=== PATIENT | female | born 1945 | race Caucasian/White ===

== ENCOUNTER 2016-12-24 18:03 | Emergency (ER) | payer MEDICARE ==
[2016-12-24 18:25] VITALS: TEMP 97.1; O2SAT 97
--- NOTE | 2016-12-24 18:37 | ED.PDOC ---
History of Present Illness - General Chief Complaint: Trauma Stated Complaint: left rib pain Time Seen by Provider: 12/24/16 18:33 Source: patient, RN notes reviewed, Vital Signs reviewed Exam Limitations: no limitations - History of Present Illness Initial Comments: Kita Dewitt 71 y/o female stated that she slipped and fell at home 12/22/2016 as she was walking from her bedroom to the kitchen to get water at about 0300h.She stated nightlights bulbs was off and did not turn on her lights.She denies head or neck injuries but bit her tongue and fell on her left side causing her ribs to hurt since incident making her unable to sleep because of the pain no medical attention was made after the incident Timing/Duration: other - 3 days ago Severity: moderate Improving Factors: rest Worsening Factors: movement Associated Symptoms: denies symptoms Allergies/Adverse Reactions: Allergies NO KNOWN ALLERGY Allergy (Verified 12/24/16 18:24) Home Medications: Ambulatory Orders Acetamin W/Cod #3 Tab [Tylenol w/CODEINE #3] 1 ea PO Q6HR PRN #20 tab 12/24/16 Review of Systems - Review of Systems Constitutional: States: no symptoms reported EENTM: States: no symptoms reported Respiratory: States: see HPI Cardiology: States: no symptoms reported Gastrointestinal/Abdominal: States: no symptoms reported Genitourinary: States: no symptoms reported Musculoskeletal: States: no symptoms reported Skin: States: no symptoms reported Neurological: States: no symptoms reported Endocrine: States: no symptoms reported Hematologic/Lymphatic: States: no symptoms reported Past Medical History (General) - Patient Medical History Hx Cardiac Disorders: Yes - irregular heart rate Hx Hypertension: Yes Hx Diabetes: Yes Hx Cancer: Yes - breast Hx Other PMH: Yes - glaucoma Surgical History: other - mastectomy,, hernia repair - Social History Hx Tobacco Use: No Hx Alcohol Use: No Hx Substance Use: No Hx Substance Use Treatment: No Hx Depression: No - Activities of Daily Living Patient Lives Alone: No - Hospice Agency (if applicable):: None Grooming Ability: Independent Eating (Feeding) Ability: Independent Toileting Ability: Independent - Female History Patient is a Female of Child Bearing Age (10 -59 yrs old): No Patient : No Family Medical History - Family History Mother Family History: No Known Hx Family Cancer: Yes - lung-mom;throat-dad Physical Exam - Physical Exam General Appearance: Alert, No apparent distress Eye Exam: bilateral normal Ears, Nose, Throat: hearing grossly normal, normal ENT inspection, normal pharynx Neck: non-tender, full range of motion, supple, normal inspection Respiratory: lungs clear, normal breath sounds, no respiratory distress, other - tenderness left lower ribs mid axillary line Cardiovascular/Chest: normal peripheral pulses, regular rate, rhythm, no edema, no murmur Peripheral Pulses: radial,right: 2+, radial,left: 2+ Gastrointestinal/Abdominal: normal bowel sounds, non tender, soft Back Exam: normal inspection, no CVA tenderness, no vertebral tenderness Extremity: normal range of motion, non-tender, normal inspection, no calf tenderness Neurologic: no motor/sensory deficits, alert, normal mood/affect, oriented x 3 Skin Exam: normal color, warm/dry, other - ecchymosis right knee Lymphatic: no adenopathy Progress - EKG/XRAY/CT XRAY: chest - per radiologist no acute abnormalities noted Departure - Departure Clinical Impression: Contusion of chest wall with intact skin Fall at home Qualifiers: Encounter type: initial encounter Qualified Code(s): W19.XXXA - Unspecified fall, initial encounter Time of Disposition: 19:08 Disposition: Discharge to Home or Self Care Condition: Good Departure Forms: ED Discharge - Pt. Copy, Patient Portal Self Enrollment Instructions: DI for Rib Contusion Prescriptions: Acetamin W/Cod #3 Tab [Tylenol w/CODEINE #3] 1 ea PO Q6HR PRN #20 tab PRN Reason: Pain Home Medications: Ambulatory Orders Acetamin W/Cod #3 Tab [Tylenol w/CODEINE #3] 1 ea PO Q6HR PRN #20 tab 12/24/16
--- NOTE | 2016-12-24 18:52 | RAD ---
EXAM: Ribs,Left 3 Views (accession [id number]), Chest,1 View (accession [id number]) CLINICAL INDICATION: 71-year-old female status post fall. TECHNIQUE: Single view, AP portable chest was obtained. Three views of the LEFT ribs were obtained in multiple projection. COMPARISON: None. FINDINGS: Chest: Unremarkable cardiac and mediastinal silhouette. Heart size is normal. Tortuous ectatic thoracic aorta. Lungs are clear without focal opacity, pneumothorax or pleural effusions. Ribs: The visualized bones reveal diffuse demineralization and degenerative change. S-shaped thoracolumbar curvature. The lower ribs are not well visualized. IMPRESSION: 1. No acute cardiopulmonary abnormalities. 2. No discrete acute osseous findings are noted. If there remains clinical concern for rib pathology, CT chest may be considered. Electronically signed by: Vasrha Diez MD 12/24/2016 6:51 PM CDT
--- NOTE | 2016-12-24 18:52 | RAD ---
EXAM: Ribs,Left 3 Views (accession [id number]), Chest,1 View (accession [id number]) CLINICAL INDICATION: 71-year-old female status post fall. TECHNIQUE: Single view, AP portable chest was obtained. Three views of the LEFT ribs were obtained in multiple projection. COMPARISON: None. FINDINGS: Chest: Unremarkable cardiac and mediastinal silhouette. Heart size is normal. Tortuous ectatic thoracic aorta. Lungs are clear without focal opacity, pneumothorax or pleural effusions. Ribs: The visualized bones reveal diffuse demineralization and degenerative change. S-shaped thoracolumbar curvature. The lower ribs are not well visualized. IMPRESSION: 1. No acute cardiopulmonary abnormalities. 2. No discrete acute osseous findings are noted. If there remains clinical concern for rib pathology, CT chest may be considered. Electronically signed by: Varsha Diez MD 12/24/2016 6:51 PM CDT
[2016-12-24] MEDS ORDERED: HYDROCOD/APAP 7.5/325 (ER DISP) #3 TAB PO ONE (19:08)
[2016-12-24 19:32] VITALS: BP 119/77
== END 2016-12-24 19:25 | disposition home or self-care (01) ==
LOC: ER 18:03
DX: S20.219A Contusion of unspecified front wall of thorax, initial encounter (principal); I10 Essential (primary) hypertension; I49.9 Cardiac arrhythmia, unspecified; Z85.3 Personal history of malignant neoplasm of breast; Z90.10 Acquired absence of unspecified breast and nipple; W19.XXXA Unspecified fall, initial encounter; Y92.009 Unspecified place in unspecified non-institutional (private) residence as the place of occurrence of the external cause

== ENCOUNTER 2019-08-09 14:52 | Emergency (ER) | payer MEDICARE ==
--- NOTE | 2019-08-09 15:56 | ED.PDOC ---
History of Present Illness - General Chief Complaint: Respiratory Problem Time Seen by Provider: 08/09/19 15:01 Source: patient, RN notes reviewed, Vital Signs reviewed - History of Present Illness Initial Comments: Patient presents for evaluation of SOB over the past few days-1 week that has been intermittent. She did notice these symptoms starting and getting worse after [place] with recent dietary changes. She states that her symptoms worsen with exertion and she does endorse orthopnea. She denies any chest pain, cough, congestion, abdominal pain or leg swelling. She has no recent hospitalizations. She denies recent travel, recent surgeries, hx of DVT, and hormone replacement. She has no sinus congestion or PND. Timing/Duration: days Activities at Onset: activity Improving Factors: rest Worsening Factors: movement Allergies/Adverse Reactions: Allergies NO KNOWN ALLERGY Allergy (Verified 12/24/16 18:24) Home Medications: Ambulatory Orders Calcium Carbonate-Vitamin D [Calcium + D3 600-200 mg-Unit] 1 tab PO BEDTIME 11/16/18 Carvedilol 25 mg PO BID 11/16/18 Clonidine HCl 0.1 mg PO BEDTIME 11/16/18 Furosemide [Lasix] 20 mg PO DAILY 11/16/18 Glipizide [Glipizide Xl] 5 mg PO DAILY 11/16/18 Lisinopril & Hydrochlorothiazi [Lisinopril/Hctz 20-12.5 mg] 1 tab PO DAILY 11/16/18 Magnesium 400 mg PO DAILY 11/16/18 Metformin HCl [Metformin Hydrochloride] 1,000 mg PO BID 11/16/18 Potassium Chloride [Potassium Chloride ER] 10 meq PO DAILY 11/16/18 Simvastatin 20 mg PO BEDTIME 11/16/18 Review of Systems - Review of Systems Constitutional: Denies: chills, fever EENTM: Denies: nose congestion Respiratory: States: orthopnea, short of breath Cardiology: Denies: chest pain, edema, palpitations Gastrointestinal/Abdominal: Denies: abdominal pain Genitourinary: Denies: frequency Skin: Denies: rash Neurological: Denies: headache Hematologic/Lymphatic: Denies: blood clots Past Medical History (General) - Patient Medical History Hx Cardiac Disorders: Yes - irregular heart rate Hx Hypertension: Yes Hx Diabetes: Yes Hx Cancer: Yes - breast - Vaccination History Hx Influenza Vaccination: Yes Hx Pneumococcal Vaccination: Yes - Social History Hx Tobacco Use: No Hx Alcohol Use: No Hx Substance Use: No Hx Substance Use Treatment: No Hx Depression: No - Female History Patient : No Family Medical History - Family History Mother Family History: No Known Hx Family Cancer: Yes - lung-mom;throat-dad Physical Exam - Physical Exam General Appearance: Alert, Comfortable, No apparent distress, Well Developed, Well Groomed, Well Hydrated, Well Nourished Neck: non-tender, full range of motion, supple Respiratory: chest non-tender, lungs clear, normal breath sounds, no respiratory distress, no accessory muscle use Cardiovascular/Chest: normal peripheral pulses, regular rate, rhythm, no edema, no gallop Peripheral Pulses: radial,right: 2+, radial,left: 2+, dorsalis pedis,right: 2+, dorsalis pedis,left: 2+, posterior tibialis,right: 2+, posterior tibialis,left: 2+ Gastrointestinal/Abdominal: normal bowel sounds, non tender, soft Rectal Exam: deferred Extremity: no pedal edema, no calf tenderness Neurologic: alert, normal mood/affect, oriented x 3 Progress - Progress Progress: DDx: Pneumonia, PE, Viral URI, ACS, CHF, Arrhythmia Patient presents for evaluation of exertional dyspnea and orthopnea. She was found to have no ischemic changes on EKG. Troponin was found to be WNL making ACS unlikely. CXR was not significant for pneumonia or signs of pneumothorax. There is no pulmonary edema or pleural effusion. CBC was significant for chronic anemia and leukopenia, which patient states is not new. She had mild hyperkalemia on CMP which will improve with lasix utilization. BNP was found to be elevated suggestive of acute CHF. I discussed admission with the patient, however she declined. Patient is non-toxic and on room air. Plan will be for discharge home with increase in her daily lasix. She will follow-up with PCP for re-evaluation next week. 08/09/19 16:30 Discussed labs with patient and CXR. Patient declines admission. Discussed plan for diuresis with re-evaluation by PCP next week. Will plan for discharge home. - Results/Orders Results/Orders: CXR: NAD - EKG/XRAY/CT EKG: Sinus, nonspecific ST T wave Chg Comments: NSR with LBBB. Non-specific ST changes unchanged from previous outpt EKG Departure - Departure Clinical Impression: Left bundle branch block (LBBB) Acute exacerbation of CHF (congestive heart failure) Qualifiers: Heart failure type: unspecified Qualified Code(s): I50.9 - Heart failure, unspecified Leukopenia Qualifiers: Neutropenia type: unspecified Disposition: Discharge to Home or Self Care Condition: Good Departure Forms: ED Discharge - Pt. Copy, Patient Portal Self Enrollment Instructions: Heart Failure, Adult (DC) Home Medications: Ambulatory Orders Calcium Carbonate-Vitamin D [Calcium + D3 600-200 mg-Unit] 1 tab PO BEDTIME 11/16/18 Carvedilol 25 mg PO BID 11/16/18 Clonidine HCl 0.1 mg PO BEDTIME 11/16/18 Furosemide [Lasix] 20 mg PO DAILY 11/16/18 Glipizide [Glipizide Xl] 5 mg PO DAILY 11/16/18 Lisinopril & Hydrochlorothiazi [Lisinopril/Hctz 20-12.5 mg] 1 tab PO DAILY 11/16/18 Magnesium 400 mg PO DAILY 11/16/18 Metformin HCl [Metformin Hydrochloride] 1,000 mg PO BID 11/16/18 Potassium Chloride [Potassium Chloride ER] 10 meq PO DAILY 11/16/18 Simvastatin 20 mg PO BEDTIME 11/16/18 Comments: Live Manriquez D.O. [facility] #[id number]
--- NOTE | 2019-08-09 16:35 | RAD ---
EXAM DESCRIPTION: Chest,2 Views CLINICAL HISTORY: 74 years Female, SOB COMPARISON: November 16, 2018. TECHNIQUE: PA and lateral radiographs of the chest were obtained. FINDINGS: The trachea appears midline. The cardiomediastinal silhouette is enlarged. The pulmonary vasculature appears unremarkable. No acute consolidation or pleural effusion. Diffuse osteopenia of the visualized thoracic spine with probable compression deformity of the mid thoracic spine. IMPRESSION: 1. Stable cardiomegaly without evidence of failure or vascular congestion. 2. No acute consolidation or pleural effusion. 3. Diffuse osteopenia of the thoracic spine with probable age indeterminate compression deformity of the mid thoracic spine. Correlate with history of back pain. Electronically signed by: Arun Kirk MD 08/09/2019 4:33 PM [employer]GER
[2019-08-09 16:58] VITALS: BP 139/75; TEMP 97.4; O2SAT 95
== END 2019-08-09 16:52 | disposition home or self-care (01) ==
LOC: ER 14:52
DX: I50.9 Heart failure, unspecified (principal); I44.7 Left bundle-branch block, unspecified; D72.819 Decreased white blood cell count, unspecified; R06.02 Shortness of breath; I10 Essential (primary) hypertension; E11.9 Type 2 diabetes mellitus without complications; Z85.3 Personal history of malignant neoplasm of breast; Z79.899 Other long term (current) drug therapy; Z79.84 Long term (current) use of oral hypoglycemic drugs

== ENCOUNTER 2019-08-15 11:45 | Emergency (ER) | payer MEDICARE ==
--- NOTE | 2019-08-15 12:19 | ED.PDOC ---
History of Present Illness - General Time Seen by Provider: 08/15/19 11:54 - History of Present Illness Initial Comments: Patient presents for evaluation of worsneing shortness of breath and fatigue over the past few days. She does endorse low grade fevers. She denies any nausea, vomiting, constipation or diarrhea. She does endorse decreased urine output. She has been taking her lasix daily. She denies any chest pain. She has no sick contacts. She denies any other complaints. Allergies/Adverse Reactions: Allergies NO KNOWN ALLERGY Allergy (Verified 08/15/19 12:25) Home Medications: Ambulatory Orders Calcium Carbonate-Vitamin D [Calcium + D3 600-200 mg-Unit] 1 tab PO BEDTIME 11/16/18 Furosemide [Lasix] 20 mg PO DAILY 11/16/18 Glipizide [Glipizide Xl] 5 mg PO DAILY 11/16/18 Lisinopril & Hydrochlorothiazi [Lisinopril/Hctz 20-12.5 mg] 1 tab PO DAILY 11/16/18 Magnesium 400 mg PO DAILY 11/16/18 Potassium Chloride [Potassium Chloride ER] 10 meq PO DAILY 11/16/18 RX: Carvedilol 25 mg PO BID 11/16/18 RX: Clonidine HCl 0.1 mg PO BEDTIME 11/16/18 RX: Metformin HCl [Metformin Hydrochloride] 1,000 mg PO BID 11/16/18 RX: Simvastatin 20 mg PO BEDTIME 11/16/18 Cephalexin Monohydrate [Keflex] 500 mg PO QID 7 Days #28 cap 08/15/19 Oseltamivir Capsule [Tamiflu] 75 mg PO BID 5 Days #10 capsule 08/15/19 Review of Systems - Review of Systems Constitutional: States: fever. Denies: chills EENTM: States: nose congestion Respiratory: States: cough, short of breath Cardiology: Denies: chest pain Gastrointestinal/Abdominal: Denies: abdominal pain, diarrhea, nausea Genitourinary: States: other - decreased Musculoskeletal: Denies: back pain Skin: Denies: rash Neurological: Denies: headache Past Medical History (General) - Patient Medical History Hx Cardiac Disorders: Yes - irregular heart rate Hx Hypertension: Yes Hx Diabetes: Yes Hx Cancer: Yes - breast - Vaccination History Hx Influenza Vaccination: Yes Hx Pneumococcal Vaccination: Yes - Social History Hx Tobacco Use: No Hx Alcohol Use: No Hx Substance Use: No Hx Substance Use Treatment: No Hx Depression: No - Female History Patient : No Family Medical History - Family History Mother Family History: No Known Hx Family Cancer: Yes - lung-mom;throat-dad Physical Exam - Physical Exam General Appearance: Alert, Other - Appears uncomfortable. Non-toxic. Neck: full range of motion, supple, normal inspection Respiratory: normal breath sounds, no respiratory distress, no accessory muscle use Cardiovascular/Chest: normal peripheral pulses, regular rate, rhythm, no edema, no gallop Gastrointestinal/Abdominal: non tender, soft, no organomegaly Extremity: non-tender, normal inspection, no pedal edema Neurologic: alert, normal mood/affect, oriented x 3 Progress - Progress Progress: Patient presents for evaluation of SOB and fatigue. EKG was not suggestive of ischemic changes. CXR was not significant for pulmonary edema or pneumonia. There was no signs of anemia or leukocytosis. Troponin was WNL. BNP was elevated, not signifcant from last visit. There was slight elevated in creatinine. Potassium was WNL. Influenza screen was found to be positive. UA was also concerning for UTI. Symptoms are concerning for UTI, influenza and CHF exacerbation. Discussed admission recommendations, however patient declined. I discussed that she would benefit from IV lasix, however patient declined. Patient will be discharged with keflex and tamiflu. Patient will follow-up with PCP for re-evaluation. - Results/Orders Results/Orders: CXR: NAD 08/15/19 12:15 EKG STAT 08/15/19 12:35 Urine Culture Stat Laboratory Results WBC 2.5 K/mm3 (4.8-10.8) L 08/15/19 12:20 RBC 3.58 M/mm3 (4.20-5.40) L 08/15/19 12:20 Hgb 11.0 gm/dL (12.0-16.0) L 08/15/19 12:20 Hct 34.1 % (36.0-47.0) L 08/15/19 12:20 MCV 95.1 fl (81.0-99.0) 08/15/19 12:20 MCH 30.7 pg (27.0-31.0) 08/15/19 12:20 MCHC 32.2 g/dL (33.0-37.0) L 08/15/19 12:20 RDW 15.0 % (11.5-14.5) H 08/15/19 12:20 Plt Count 126 K/mm3 (130-400) L 08/15/19 12:20 MPV 7.3 fl (7.40-10.4) L 08/15/19 12:20 Absolute Neuts (auto) Not Reportable 08/15/19 12:20 Absolute Lymphs (auto) Not Reportable 08/15/19 12:20 Absolute Monos (auto) Not Reportable 08/15/19 12:20 Absolute Eos (auto) Not Reportable 08/15/19 12:20 Neutrophils % Not Reportable 08/15/19 12:20 Neutrophils % (Manual) 57.0 % (42.0-78.0) 08/15/19 12:20 Lymphocytes % Not Reportable 08/15/19 12:20 Lymphocytes % (Manual) 39.0 % 08/15/19 12:20 Monocytes % Not Reportable 08/15/19 12:20 Monocytes % (Manual) 3.0 % 08/15/19 12:20 Eosinophils % Not Reportable 08/15/19 12:20 Basophils % Not Reportable 08/15/19 12:20 Basophils 1.0 % 08/15/19 12:20 Hypochromia 1+ 08/15/19 12:20 Platelet Estimate Decreased (NORMAL) 08/15/19 12:20 Sodium 135 mmol/L (135-145) 08/15/19 12:20 Potassium 4.5 mmol/L (3.6-5.0) 08/15/19 12:20 Chloride 98 mmol/L (101-111) L 08/15/19 12:20 Carbon Dioxide 25 mmol/L (21-31) 08/15/19 12:20 Anion Gap 16.5 (12-18) 08/15/19 12:20 BUN 56 mg/dL (7-18) H 08/15/19 12:20 Creatinine 1.68 mg/dL (0.6-1.3) H 08/15/19 12:20 BUN/Creatinine Ratio 33.3 (10-20) H 08/15/19 12:20 Random Glucose 181 mg/dL (70-105) H 08/15/19 12:20 Serum Osmolality 290.2 mOsm/L (275-295) 08/15/19 12:20 Calcium 9.0 mg/dL (8.4-10.2) 08/15/19 12:20 Total Bilirubin 0.6 mg/dL (0.2-1.0) 08/15/19 12:20 AST 18 IU/L (10-42) 08/15/19 12:20 ALT 10 IU/L (10-60) 08/15/19 12:20 Alkaline Phosphatase 48 IU/L (42-121) 08/15/19 12:20 Troponin I 0.03 ng/mL (0.01-0.05) 08/15/19 12:20 B-Natriuretic Peptide 1500.0 pg/ml (0-100) H* 08/15/19 12:20 Serum Total Protein 6.8 gm/dL (6.4-8.2) 08/15/19 12:20 Albumin 3.4 g/dl (3.2-5.5) 08/15/19 12:20 Globulin 3.4 gm/dL (2.3-3.5) 08/15/19 12:20 Albumin/Globulin Ratio 1.0 (1.1-1.9) L 08/15/19 12:20 Urine Color Yellow (Yellow) 08/15/19 12:35 Urine Appearance Clear (Clear) 08/15/19 12:35 Urine pH 5.0 (4.5-7.8) 08/15/19 12:35 Ur Specific [place] 1.010 (1.005-1.030) 08/15/19 12:35 Urine Protein Negative mg/dL 08/15/19 12:35 Urine Glucose (UA) Negative mg/dL (Negative) 08/15/19 12:35 Urine Ketones Negative mg/dL (NEGATIVE) 08/15/19 12:35 Urine Blood Negative (Negative) 08/15/19 12:35 Urine Nitrite Negative 08/15/19 12:35 Urine Bilirubin Negative (NEGATIVE) 08/15/19 12:35 Urine Urobilinogen 0.2 mg/dL (0.2-1.0) 08/15/19 12:35 Ur Leukocyte Esterase Moderate (Negative) H 08/15/19 12:35 Urine RBC 1-3 /hpf 08/15/19 12:35 Urine WBC 10-20 /hpf H 08/15/19 12:35 Ur Epithelial Cells 3-5 /hpf 08/15/19 12:35 Urine Bacteria 1+ 08/15/19 12:35 - EKG/XRAY/CT Comments: NSR rate of [address] changes Departure - Departure Clinical Impression: Influenza Acute exacerbation of CHF (congestive heart failure) Qualifiers: Heart failure type: unspecified Qualified Code(s): I50.9 - Heart failure, unspecified UTI (urinary tract infection) Qualifiers: Urinary tract infection type: site unspecified Hematuria presence: without hematuria Qualified Code(s): N39.0 - Urinary tract infection, site not specified Time of Disposition: 13:39 Disposition: Discharge to Home or Self Care Condition: Good Departure Forms: ED Discharge - Pt. Copy, Patient Portal Self Enrollment Instructions: Heart Failure, Adult (DC), Urinary Tract Infection, Adult (DC) Prescriptions: Cephalexin Monohydrate [Keflex] 500 mg PO QID 7 Days #28 cap Oseltamivir Capsule [Tamiflu] 75 mg PO BID 5 Days #10 capsule Home Medications: Ambulatory Orders Calcium Carbonate-Vitamin D [Calcium + D3 600-200 mg-Unit] 1 tab PO BEDTIME 11/16/18 Furosemide [Lasix] 20 mg PO DAILY 11/16/18 Glipizide [Glipizide Xl] 5 mg PO DAILY 11/16/18 Lisinopril & Hydrochlorothiazi [Lisinopril/Hctz 20-12.5 mg] 1 tab PO DAILY 11/16/18 Magnesium 400 mg PO DAILY 11/16/18 Potassium Chloride [Potassium Chloride ER] 10 meq PO DAILY 11/16/18 RX: Carvedilol 25 mg PO BID 11/16/18 RX: Clonidine HCl 0.1 mg PO BEDTIME 11/16/18 RX: Metformin HCl [Metformin Hydrochloride] 1,000 mg PO BID 11/16/18 RX: Simvastatin 20 mg PO BEDTIME 11/16/18 Cephalexin Monohydrate [Keflex] 500 mg PO QID 7 Days #28 cap 08/15/19 Oseltamivir Capsule [Tamiflu] 75 mg PO BID 5 Days #10 capsule 08/15/19 Comments: Live Manriquez D.O. [facility] #[id number]
[2019-08-15 12:26] VITALS: TEMP 97.9
--- NOTE | 2019-08-15 12:58 | RAD ---
EXAM DESCRIPTION: Chest,2 Views CLINICAL HISTORY: 74 years Female, SOB COMPARISON: 08/09/2019. TECHNIQUE: PA and lateral radiographs of the chest were obtained. FINDINGS: Trachea is midline.The cardiomediastinal silhouette is enlarged in size. The pulmonary vasculature is within normal limits.The lungs are clear with no acute consolidation.No evidence of pleural effusions.No evidence of pneumothorax. IMPRESSION: Enlarged cardiac silhouette. No acute cardiopulmonary process. Electronically signed by: Jillian Mazariegos MD 08/15/2019 12:57 PM [facility]
--- NOTE | 2019-08-15 13:37 | CT ---
EXAM DESCRIPTION: CT head without contrast CLINICAL HISTORY: Ground-level fall 3 days ago.. Assess for hemorrhage COMPARISON: None. TECHNIQUE: Noncontrast spiral CT of the brain. This exam was performed according to our departmental dose-optimization program, which includes automated exposure control, adjustment of the mA and/or kV according to patient size and/or use of iterative reconstruction technique FINDINGS: Patchy white matter disease bilateral cerebral hemispheres. Focal hypodensity in the anterior limb internal capsule on the right, age indeterminate ischemic etiology most likely. Atherosclerotic vascular calcifications of the vertebrobasilar and cavernous carotid arteries No intracranial hemorrhage or mass lesion. Cerebral and cerebellar volume loss with prominence of cortical sulci and to lesser extent ventricular system No calvarial or skull base lesion. No fluid in the paranasal sinuses or mastoids. IMPRESSION: White matter disease, nonspecific likely remote microvascular ischemia. No intracranial hemorrhage CT is insensitive for early evaluation of acute stroke. If there is clinical concern for acute ischemia, an MRI may be considered. Electronically signed by: Kelton Kennedy MD 08/15/2019 1:35 PM [facility]
[2019-08-15 14:57] VITALS: BP 124/72; O2SAT 96
== END 2019-08-15 14:00 | disposition home or self-care (01) ==
LOC: ER 11:45
DX: I50.9 Heart failure, unspecified (principal); J11.1 Influenza due to unidentified influenza virus with other respiratory manifestations; N39.0 Urinary tract infection, site not specified; I44.7 Left bundle-branch block, unspecified; I10 Essential (primary) hypertension; E11.9 Type 2 diabetes mellitus without complications; Z85.3 Personal history of malignant neoplasm of breast; Z79.84 Long term (current) use of oral hypoglycemic drugs; Z79.899 Other long term (current) drug therapy

== ENCOUNTER 2019-11-30 17:50 | Emergency (ER) | payer MEDICARE ==
[2019-11-30] MEDS ORDERED: ONDANSETRON ODT 8 MG TAB SL ONE (18:12)
[2019-11-30] MEDS ORDERED: FUROSEMIDE INJ 40 MG/4 ML VIAL IV ONE (19:07)
[2019-11-30] MEDS ORDERED: MAGNESIUM SULFATE PREMIX 2GM 2 GM in PREMIX BAG 1 BAG IVPB ONE (19:07)
[2019-11-30] MEDS ORDERED: cefTRIAXone SODIUM 1 GM in SODIUM CHL 0.9% 50ML MIN-BAG+ 50 ML IVPB ONE (19:07)
[2019-11-30] MEDS ORDERED: cefTRIAXone SODIUM 1 GM VIAL ONE (19:10)
[2019-11-30] MEDS ORDERED: SODIUM CHL 0.9% 50ML MIN-BAG+ 50 ML IVPB ONE (19:11)
[2019-11-30] MEDS ORDERED: MAGNESIUM SULFATE PREMIX 2GM 50 ML IVPB ONE (19:11)
--- NOTE | 2019-11-30 20:04 | RAD ---
PROCEDURE: XR Abdomen Series CLINICAL HISTORY: 74 years Female sob, nvd TECHNIQUE: One view of the chest and two views of the abdomen are provided. COMPARISON: No prior exams provided for comparison. FINDINGS: Evaluation of the chest is limited by patient size and lordotic positioning. Cannot exclude bibasilar airspace infiltrates, particularly on the left. The heart may be enlarged. Images of the abdomen demonstrate a nonspecific bowel gas pattern without evidence of obstruction. No free air. No visualized acute osseous lesion. IMPRESSION: Examination limited by patient body size. Recommend standing radiographs of the chest to exclude bibasilar airspace infiltrates. Nonspecific and nondilated bowel gas pattern. Electronically signed by: Lisa Guillen MD 11/30/2019 8:03 PM CDT
--- NOTE | 2019-11-30 21:27 | CT ---
EXAM DESCRIPTION: Chest w/o Contrast (accession [id number]), Abdoment/Pelvis w/o Contrast (accession [id number]) CLINICAL HISTORY: 74 years Female pna vs chf? COMPARISON: None. TECHNIQUE: Contiguous axial images obtained through the rest, abdomen and pelvis without IV contrast. Reformatted images obtained. This exam was performed according to our department optimization program which includes automated exposure control, adjustment of the mA and/or kv according to patient size and/or use of iterative reconstruction technique. FINDINGS: Chest: There is marked cardiac enlargement. No evidence of pericardial effusion. Calcification in aorta. The aorta appears normal in caliber. Small pericardial cyst suggested along the right heart border. Scattered small mediastinal lymph nodes. Hilar regions are suboptimally evaluated. Small to moderate bilateral pleural effusions. Diffuse groundglass densities that may reflect atelectasis or developing edema. Dependent atelectasis the lung bases. Abdomen pelvis: Elongated right lobe of the liver. Micronodular contour to the liver which may reflect cirrhosis. Portal veins appear dilated. Moderate splenic enlargement measuring 19.4 cm. The unenhanced pancreas appears intrinsically normal. No adrenal masses. The kidneys appear unremarkable. No hydronephrosis or definite ureteral calculi. The gallbladder is present with gallstones. There is wall thickening and surrounding inflammation consistent with acute cholecystitis. There also appear to be numerous gallstones in the common duct and common hepatic duct as well as in the right hepatic duct. No aneurysmal dilatation of the aorta. No bowel obstruction. No free pelvic fluid. Fibroid uterus. IMPRESSION: Nodular liver consistent with cirrhosis with findings suggesting portal venous hypertension including prominent portal veins and splenic enlargement Cholelithiasis and choledocholithiasis with inflammatory changes suggesting acute cholecystitis Cardiac enlargement Is diffuse nonspecific predominantly interstitial infiltrates which may reflect early interstitial edema with moderate bilateral pleural effusions Extensive vascular calcification Additional chronic changes as above Electronically signed by: Delilah Ram MD 11/30/2019 9:25 PM CDT
--- NOTE | 2019-11-30 22:23 | ED.PDOC ---
History of Present Illness - General Chief Complaint: Respiratory Problem Stated Complaint: SOB, N/V/D, abd/back pain Time Seen by Provider: 11/30/19 17:53 Source: patient Exam Limitations: no limitations - History of Present Illness Initial Comments: The patient is a 74-year-old female presented emergency room secondary to about 3 days of progressive shortness of breath that is consistent with her previous episodes of CHF exacerbations. She has a known ejection fraction of around 20%. Reports a low-grade fever upon arrival here. The other symptom that brought her in was that she started having abdominal pain in the epigastric area along with nausea and vomiting about 6 to 7 hours prior to arrival. She does have known gallstones. The patient also has a chronically low white blood cell count normally averaging around 2500. The patient sees cardiology and hematology in [place]. No definite chest pain. No syncope or near syncope. The patient is hypoxic at around 86% on room air. She does have bibasilar rales. Mild increased work of breathing. She is not normally on home oxygen. She denies being on any blood thinners. Timing/Duration: unsure Severity: moderate Improving Factors: nothing Worsening Factors: nothing Associated Symptoms: nausea/vomiting, shortness of breath Allergies/Adverse Reactions: Allergies NO KNOWN ALLERGY Allergy (Verified 11/30/19 18:12) Home Medications: Ambulatory Orders Calcium Carbonate-Vitamin D [Calcium + D3 600-200 mg-Unit] 1 tab PO BEDTIME 11/16/18 Carvedilol 25 mg PO BID 11/16/18 Clonidine HCl 0.1 mg PO BEDTIME 11/16/18 Furosemide [Lasix] 20 mg PO DAILY 11/16/18 Glipizide [Glipizide Xl] 5 mg PO DAILY 11/16/18 Lisinopril & Hydrochlorothiazi [Lisinopril/Hctz 20-12.5 mg] 1 tab PO DAILY 11/16/18 Magnesium 400 mg PO BARBARA-OTH-DAY 11/16/18 Metformin HCl [Metformin Hydrochloride] 1,000 mg PO BID 11/16/18 Potassium Chloride [Potassium Chloride ER] 10 meq PO DAILY 11/16/18 Simvastatin 20 mg PO BEDTIME 11/16/18 Review of Systems - Review of Systems Constitutional: States: malaise EENTM: States: no symptoms reported Respiratory: States: short of breath Cardiology: States: no symptoms reported Gastrointestinal/Abdominal: States: abdominal pain, diarrhea - Mild chronic, nausea, vomiting Genitourinary: States: no symptoms reported Musculoskeletal: States: no symptoms reported Skin: States: no symptoms reported Neurological: States: anxiety Endocrine: States: no symptoms reported All other Systems: No Change from Baseline Past Medical History (General) - Patient Medical History Hx Stroke: No Hx of COPD: No Hx Cardiac Disorders: Yes - LBBB Hx Congestive Heart Failure: Yes Hx Hypertension: Yes Hx Diabetes: No Hx Gastroesophageal Reflux: Yes Hx Cancer: Yes - Breast Surgical History: cancer surgery, other - Vaccination History Hx Influenza Vaccination: Yes Hx Pneumococcal Vaccination: Yes - Social History Hx Tobacco Use: No Hx Alcohol Use: No Hx Substance Use: No Hx Substance Use Treatment: No Hx Depression: No - Female History Patient is a Female of Child Bearing Age (10 -59 yrs old): No Patient : No Family Medical History - Family History Mother Family History: No Known Hx Family Cancer: Yes - lung-mom;throat-dad Physical Exam - Physical Exam General Appearance: Alert, Anxious Eye Exam: bilateral normal Ears, Nose, Throat: hearing grossly normal, normal pharynx Neck: full range of motion, supple Respiratory: accessory muscle use, rales - Bibasilar, other - Moderate increased work of breathing initially Cardiovascular/Chest: normal peripheral pulses, regular rate, rhythm, no edema Peripheral Pulses: radial,right: 2+, radial,left: 2+ Gastrointestinal/Abdominal: soft, other - Epigastric discomfort to palpation. No definite palpable mass. 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, alert, oriented x 3, other - The patient is very anxious Skin Exam: normal color Comments: Vital Signs - 24 hr 11/30/19 11/30/19 11/30/19 17:50 18:05 19:15 Temperature 100 F H 98.6 F Pulse Rate [ 100 H 100 H 75 Pulse ox] Respiratory 32 H 32 H 18 Rate Blood Pressure 158/117 132/76 [L brachial] O2 Sat by Pulse 89 L 97 Oximetry 11/30/19 20:15 Temperature 97.8 F Pulse Rate [ 77 Pulse ox] Respiratory 20 Rate Blood Pressure 118/77 [L brachial] O2 Sat by Pulse 96 Oximetry Progress - Progress Progress: 11/30/19 22:27 The patient is a 74-year-old female presenting with what appears to be both a CHF exacerbation and what is likely an early acute cholecystitis. The patient does have significant gallstones in the common bile duct. See report for details. A blood culture has been done. The patient has received a dose of Rocephin IV. She has not thrown up since her arrival here. She has received a dose of IV Lasix for the CHF. The patient has also been placed on oxygen for the CHF. She is breathing more easily. The patient is being transferred to [place] for GI, surgery and cardiology evaluation. Acceptance is appreciated. A COVID test has been sent off however the turnaround time is 2 days. The patient has no known high risk activity or exposure. - Results/Orders Results/Orders: 11/30/19 18:15 EKG STAT shows normal sinus rhythm at 96 bpm left axis deviation. Left bundle branch block. Difficult to interpret otherwise. This is consistent with her previous EKG. 11/30/19 18:24 SARS-COV2 RT-PCR HIGH RISK Stat 11/30/19 18:32 BLOOD CULTURE Stat Laboratory Results - last 24 hr 11/30/19 11/30/19 11/30/19 18:12 18:15 18:15 WBC 4.6 L RBC 3.63 L Hgb 11.3 L Hct 34.8 L MCV 95.8 MCH 31.0 MCHC 32.4 L RDW 15.5 H Plt Count 158 MPV 7.6 Absolute Neuts (auto) 3.10 Absolute Lymphs (auto) 1.10 Absolute Monos (auto) 0.30 Absolute Eos (auto) 0.00 Absolute Basos (auto) 0.00 Neutrophils % 67.7 Lymphocytes % 24.2 Monocytes % 6.6 Eosinophils % 0.6 L Basophils % 0.9 PT INR PTT (SP) D-Dimer, Quantitative Sodium 135 Potassium 4.7 Chloride 102 Carbon Dioxide 25 Anion Gap 12.7 BUN 30 H Creatinine 1.29 BUN/Creatinine Ratio 23.3 H POC Glucose 160 H Random Glucose 169 H Serum Osmolality 280.2 Lactic Acid Calcium 8.9 Magnesium 1.4 L Total Bilirubin 0.8 AST 18 ALT 18 Alkaline Phosphatase 51 Creatine Kinase 20 L CK-MB (CK-2) 1.6 CK-MB (CK-2) % Not Reportable Troponin I 0.02 B-Natriuretic Peptide 3430.0 H* Serum Total Protein 6.4 Albumin 3.5 Globulin 2.9 Albumin/Globulin Ratio 1.2 Amylase 23 L Lipase 38 Urine Color Urine Appearance Urine pH Ur Specific [place] Urine Protein Urine Glucose (UA) Urine Ketones Urine Blood Urine Nitrite Urine Bilirubin Urine Urobilinogen Ur Leukocyte Esterase Urine RBC Urine WBC Ur Epithelial Cells Urine Bacteria 11/30/19 11/30/19 11/30/19 18:15 18:15 19:45 WBC RBC Hgb Hct MCV MCH MCHC RDW Plt Count MPV Absolute Neuts (auto) Absolute Lymphs (auto) Absolute Monos (auto) Absolute Eos (auto) Absolute Basos (auto) Neutrophils % Lymphocytes % Monocytes % Eosinophils % Basophils % PT 10.9 INR 1.10 PTT (SP) 23.6 D-Dimer, Quantitative 151 Sodium Potassium Chloride Carbon Dioxide Anion Gap BUN Creatinine BUN/Creatinine Ratio POC Glucose Random Glucose Serum Osmolality Lactic Acid 1.7 Calcium Magnesium Total Bilirubin AST ALT Alkaline Phosphatase Creatine Kinase CK-MB (CK-2) CK-MB (CK-2) % Troponin I B-Natriuretic Peptide Serum Total Protein Albumin Globulin Albumin/Globulin Ratio Amylase Lipase Urine Color Yellow Urine Appearance Clear Urine pH 5.0 Ur Specific [place] 1.015 Urine Protein Negative Urine Glucose (UA) Negative Urine Ketones Negative Urine Blood Negative Urine Nitrite Negative Urine Bilirubin Negative Urine Urobilinogen 0.2 Ur Leukocyte Esterase Trace H Urine RBC 0-1 Urine WBC 3-5 H Ur Epithelial Cells 5-10 Urine Bacteria Rare Acute abdominal series is inadequate for the single view chest. Abdomen shows no evidence of free air or obstruction. CT scan of the chest shows bilateral pleural effusions along with mild interstitial infiltrates that could be consistent with pulmonary edema. CT scan of abdomen pelvis without contrast shows cholelithiasis, choledocholithiasis with inflammatory changes consistent with acute cholecystitis. There are gallstones in the common bile duct. Ultrasound is not available. Departure - Departure Clinical Impression: Acute cholecystitis, Choledocholithiasis Acute exacerbation of CHF (congestive heart failure) Qualifiers: Heart failure type: combined systolic and diastolic Qualified Code(s): I50.43 - Acute on chronic combined systolic (congestive) and diastolic (congestive) heart failure Disposition: Transfer to Hospital Condition: Poor Departure Forms: ED Discharge - Pt. Copy, Patient Portal Self Enrollment Home Medications: Ambulatory Orders Calcium Carbonate-Vitamin D [Calcium + D3 600-200 mg-Unit] 1 tab PO BEDTIME 11/16/18 Carvedilol 25 mg PO BID 11/16/18 Clonidine HCl 0.1 mg PO BEDTIME 11/16/18 Furosemide [Lasix] 20 mg PO DAILY 11/16/18 Glipizide [Glipizide Xl] 5 mg PO DAILY 11/16/18 Lisinopril & Hydrochlorothiazi [Lisinopril/Hctz 20-12.5 mg] 1 tab PO DAILY 11/16/18 Magnesium 400 mg PO BARBARA-OTH-DAY 11/16/18 Metformin HCl [Metformin Hydrochloride] 1,000 mg PO BID 11/16/18 Potassium Chloride [Potassium Chloride ER] 10 meq PO DAILY 11/16/18 Simvastatin 20 mg PO BEDTIME 11/16/18 Transfer to Outside Facility - Transfer Information Decision to Transfer Date: 11/30/19 Decision to Transfer Time: 22:29 Reason for Transfer: required specialist not available Accepting Provider:: dr [place] Accepting Facility: [facility]
[2019-11-30 22:55] VITALS: BP 114/65
[2019-11-30 22:57] VITALS: TEMP 96.8; O2SAT 96
== END 2019-11-30 22:45 | disposition short-term general hospital (02) ==
LOC: ER 17:50
DX: K80.42 Calculus of bile duct with acute cholecystitis without obstruction (principal); I50.43 Acute on chronic combined systolic (congestive) and diastolic (congestive) heart failure; R06.02 Shortness of breath; R11.2 Nausea with vomiting, unspecified; I10 Essential (primary) hypertension; Z85.3 Personal history of malignant neoplasm of breast; Z79.899 Other long term (current) drug therapy
CPT/HCPCS: 71250; 74019; 74176; 80053; 81001; 82150; 82550; 82553; 82948; 83605; 83690; 83735; 83880; 84484; 85025; 85379; 85610; 85730; 87040; 87502; 87635; 93005; J0696; J1940; J3475; J7050